=== PATIENT | female | born 1965 | race American Indian/Alaskan Native ===

== ENCOUNTER 2016-09-14 13:24 | Emergency (ER) | payer BC ==
[2016-09-14 13:56] VITALS: BP 158/109
[2016-09-14] MEDS ORDERED: MOTRIN PO ONE (17:22)
--- NOTE | 2016-09-14 17:43 | Emergency Department Report ---
HPI - General Chief Complaint: Pain General - HPI HPI: 51-year-old -[place] female comes in with complaint of flulike symptoms bodyaches and pain for 2 days. She admits to cough and nasal congestion and diarrhea as well as sore throat and body aches. He reports that she did not take her blood pressure medicine today and has tried [id number] medication without much relief. ED Past Medical Hx - Past Medical History Hx Hypertension: Yes (03/17) - Social History Smoking Status: Current Every Day Smoker Substance Use Type: Alcohol, Non Opiate Pain, Other - Medications Home Medications: Home Medications Medication Instructions Recorded Confirmed Last Taken Type Hydrochlorothiazide [Hctz] 12.5 mg PO QDAY 04/30/14 04/30/14 04/30/14 History Cetirizine HCl [ZyrTEC] 10 mg PO QDAY #30 capsule 09/14/16 Unknown Rx Fluticasone [Flonase] 1 spray NS QDAY #1 bottle 09/14/16 Unknown Rx Ibuprofen [Motrin 800 MG tab] 800 mg PO Q8HR PRN #30 tablet 09/14/16 Unknown Rx ED Review of Systems ROS: Stated complaint: BODY ACHE Other details as noted in HPI Physical Exam - Physical Exam Vital Signs: Vital Signs 09/14/16 13:53 Temperature 98.5 F Pulse Rate 106 H Respiratory 20 Rate Blood Pressure 158/109 O2 Sat by Pulse 100 Oximetry Physical Exam: GENERAL: Alert and oriented x3, no apparent distress, Normal Gait, atraumatic. HEAD: Head is normocephalic and a-traumatic. EYES: Extra ocular muscles are intact. Pupils are equal, round, and reactive to light and accommodation. EARS: symetrical, atraumatic, non tender, ear canal clear and moderate cerumen, tympanic membrance non inflamed. gross auditory nml bilaterally. NOSE: Nose symetrical, Nontender,Nares appeared normal. MOUTH:Mouth is well hydrated and without lesions. Tonsils nonerythematous or swollen, Uvula midline, Tongue not elevated. Mucous membranes are moist. Posterior pharynx clear, no exudate or lesions. Patent airways. NECK: Supple. Non edematous, No carotid bruits. No lymphadenopathy or thyromegaly. LUNGS: Symetrical with respiration, No wheezing, no rales or crackles, CTAB. HEART: S1, S2 present, regular rate and rhythm without murmur, no rubs, no gallops. NEUROLOGIC: No focal Deficit, Cranial nerves II through XII are grossly intact. No loss of sensation, No facial droop, PSYCHIATRIC: Mood is congruent with affect, SKIN: Warm and dry, No lesions, No ulceration or induration present ED Course Vital Signs 09/14/16 13:53 Temperature 98.5 F Pulse Rate 106 H Respiratory 20 Rate Blood Pressure 158/109 O2 Sat by Pulse 100 Oximetry ED Medical Decision Making - Medical Decision Making Patient's been evaluated by this provider fast track. Rapid flu sent out. Ibuprofen ordered for pain control. We'll reevaluation Critical care attestation.: If time is entered above; I have spent that time in minutes in the direct care of this critically ill patient, excluding procedure time. ED Disposition Clinical Impression: Cold Disposition: DISCHARGED TO HOME OR SELFCARE Is pt being admited?: No Does the pt Need Aspirin: No Condition: Stable Instructions: Upper Respiratory Infection (ED) Additional Instructions: Please take the Zyrtec some Flonase as prescribed ibuprofen for pain. Follow up with her primary care provider symptoms does not improve within 3-5 days. Prescriptions: Cetirizine HCl [ZyrTEC] 10 mg PO QDAY #30 capsule Fluticasone [Flonase] 1 spray NS QDAY #1 bottle Ibuprofen [Motrin 800 MG tab] 800 mg PO Q8HR PRN #30 tablet PRN Reason: Pain Referrals: PRIMARY CARE, [Primary Care Provider] - 3-5 Days Forms: Work/School Release Form(ED)
== END 2016-09-14 18:17 | disposition home or self-care (01) ==
LOC: ED 13:24
DX: J00 Acute nasopharyngitis [common cold] (principal); I10 Essential (primary) hypertension; F17.200 Nicotine dependence, unspecified, uncomplicated; R19.7 Diarrhea, unspecified; Z79.899 Other long term (current) drug therapy; Z79.1 Long term (current) use of non-steroidal anti-inflammatories (NSAID)
CPT/HCPCS: 87400; 99282

== ENCOUNTER 2017-03-31 13:08 | Emergency (ER) | payer BC ==
[2017-03-31 14:02] VITALS: BP 160/98
== END 2017-03-31 18:23 | disposition left against medical advice (07) ==
LOC: ED 13:08
DX: M25.561 Pain in right knee (principal); Z53.21 Procedure and treatment not carried out due to patient leaving prior to being seen by health care provider